=== PATIENT | female | born 1960 | race Caucasian/White ===

== ENCOUNTER 2017-05-17 08:40 | Day surgery (SDC) | payer BC ==
[~2017-05-17 08:40] MED LIST: RINGER'S SOLUTION,LACTATED 1,000 ML IV PRN
[2017-05-17] MEDS ORDERED: RINGER'S SOLUTION,LACTATED 1,000 ML IV ONE ×2 (09:14→12:00)
[2017-05-17] MEDS ORDERED: BUPIVACAINE HCL/EPINEPHRINE 50 ML VIAL IJ ONE ×2 (11:10)
[2017-05-17] MEDS ORDERED: MORPHINE SULFATE 2 MG/ML DISP.SYRIN IV PRN (12:47)
[2017-05-17] MEDS ORDERED: HYDROcodone/ACETAMINOPHEN 1 EACH TABLET PO PRN ×2 (12:48→13:20)
[2017-05-17] MEDS ORDERED: ONDANSETRON HCL/PF 2 MG/ML VIAL IV PRN (12:49)
[2017-05-17 14:51] VITALS: BP 126/75
--- NOTE | 2017-05-17 16:29 | OR ---
Operative Report - Dictated Report Narrative: Date: 05/17/2017 Preop dx: Symptomatic cholelithiasis Postop dx: same Procedure: Laparoscopic Cholecystectomy Staff surgeon: Delgado Cline MD Asst surgeon: Zachariah Goldstein Anesthesia: GETA EBL: minimal Specimen: Gallbladder Indications: Recent severe upper abdominal pain with US showing impacted stone in neck of gallbladder Description: The patient was placed in the supine position and underwent the smooth induction of GETA. The abdomen was prepped and draped in a sterile fashion. All port sites were anesthetized with marcaine prior to incision. An infraumbilical 5mm incision was carried out and the abdomen was entered under direct vision with a blunt 5mm port with a scope within the lumen of the trocar. The abdomen was then insuflated to a pressure of 15mmHg with carbon dioxide. Under direct vision a super midline 12mm and 2 right flank 5mm ports were inserted. the fundus of the gallbladder was grasped and elevated toward the diaphragm. Adhesions to the gallbladder were taken down with blunt dissection. There was a large stone, grape sized, impacted in the neck. The body of the gallbladder was grasped just above this. The cystic duct and cyst artery were isolated with a critical view of safety. They were doubly clipped and divided as was a small posterior arterial branch. The gallbladder was dissected out of the fossa with blunt dissection, scissor dissection, and electrocautery. Once liberated it was placed in an endocatch bag and delivered through the superior port site. The gallbladder was opened on the back table showed the gallbladder filled with white bile. The port was returned to the abdominal cavity and pneumoperitoneum was re-established. Inspection revealed adequate hemostasis and no evidence of bile leak. The superior midline port site fascia was approximated with a breanne- judy and heavy vicryl suture. The pneumoperitoneum was released and the ports removed. The incisions were closed with subcuticular stitches of 4-0 vicryl and sealed with dermabond. The patient tolerated the procedure well without apparent complications and was discharged from the OR in stable condition.
== END 2017-05-17 08:41 | disposition home or self-care (01) ==
LOC: AMB 08:40
PROVIDERS: ATTEND Specialist
PROC: 0FT44ZZ Resection of Gallbladder, Percutaneous Endoscopic Approach (ICD-10-PCS; principal; 2017-05-17 09:30)
DX: K80.12 Calculus of gallbladder with acute and chronic cholecystitis without obstruction (principal); Z68.28 Body mass index [BMI] 28.0-28.9, adult